=== PATIENT | female | born 1995 | race African-American/Black ===

== ENCOUNTER 2017-08-05 16:08 | Emergency (ER) | payer BC, OTHER ==
[~2017-08-05] VITALS: Ht 154.9 cm; Wt 74.8 kg
[~2017-08-05 16:08] MED LIST: CIPRODEX OTIC7.5 ML OTIC
[2017-08-05] MEDS ORDERED: PRENATAL PO (16:16)
[2017-08-05] MEDS ORDERED: PROBIOTIC1 EAC1 PO (16:16)
[2017-08-05] MEDS ORDERED: EPIPEN 2-P0.3 MG/0.3 IM (17:43)
[2017-08-05] MEDS ORDERED: ONDANSETRON HCL4 M2 PO (17:43)
[2017-08-05 17:56] VITALS: BP 120/63
== END 2017-08-05 17:57 | disposition home or self-care (01) ==
LOC: ER 16:08
DX: T78.1XXA Other adverse food reactions, not elsewhere classified, initial encounter (principal); Z91.010 Allergy to peanuts; X58.XXXA Exposure to other specified factors, initial encounter